=== PATIENT | male | born 1985 | race African-American/Black ===

== ENCOUNTER 2017-03-01 05:01 | Emergency (ER) | payer MEDICAID ==
[~2017-03-01] VITALS: Ht 165.1 cm; Wt 63.5 kg
[2017-03-01] MEDS ORDERED: NKM (05:16)
[2017-03-01] MEDS ORDERED: IBUPROFEN600 MG ORAL (05:34)
--- NOTE | 2017-03-01 05:34 | Emergency Room Report ---
History of Present Illness General Chief Complaint: Toothache Source: Patient Present Illness HPI Is a 31-year-old male with no significant past medical history. Patient presents with multiple complaints. He said he has a broken bone in his face and wanted to see physical therapist head trauma surgeon. He said nose is broken a bone in that area. No fever chills but no nausea vomiting. Also has toothache. Denies any other complaint. Denies any trauma. Also wanted to see a radar technician for his feet. Allergies: Coded Allergies: No Known Allergies (Unverified , 03/01/17) Patient History Past Medical History: see triage record, old chart reviewed Past Surgical History: other Pertinent Family History: none Social History: Denies: smoking Immunizations: other Reviewed Nursing Documentation: PMH: Agreed, PSxH: Agreed Nursing Documentation-PMH Past Medical History: No Stated History Review of Systems Eye: Denies: blurred vision, eye pain ENT: Denies: ear pain, nose congestion, throat swelling Respiratory: Denies: cough, shortness of breath Cardiovascular: Denies: chest pain, palpitations Gastrointestinal: Denies: abdominal pain, diarrhea, nausea, vomiting Musculoskeletal: Denies: back pain, joint pain Skin: Denies: rash Neurological: Denies: headache, numbness Endocrine: Denies: increased thirst, increased urine Hematologic/Lymphatic: Denies: easy bruising All Other Systems: negative except mentioned in HPI Physical Exam Vital Signs Date Time Temp Pulse Resp B/P Pulse Ox O2 Delivery O2 Flow Rate FiO2 03/01/17 05:10 97.5 65 16 118/76 100 Room Air vitals normal Sp02 EP Interpretation: reviewed, normal General Appearance: well appearing, no apparent distress, alert Head: normocephalic, atraumatic Eyes: bilateral eye EOMI, bilateral eye PERRL ENT: hearing grossly normal, normal pharynx Neck: full range of motion, supple, no meningismus Respiratory: chest non-tender, lungs clear, normal breath sounds Cardiovascular #1: regular rate, rhythm, no murmur Gastrointestinal: normal bowel sounds, non tender, no mass, no organomegaly, no bruit, non-distended Musculoskeletal: back normal, gait/station normal, normal range of motion Psychiatric: mood/affect normal Skin: warm/dry Medical Decision Making Diagnostic Impression: Primary Impression: Toothache ER Course She presents with toothache and facial pain. I see no trauma to indicate he has any broken bone. No trismus. No orbital rim deformity. No mal occlusion Last Vital Signs Date Time Temp Pulse Resp B/P Pulse Ox O2 Delivery O2 Flow Rate FiO2 03/01/17 05:10 97.5 65 16 118/76 100 Room Air Status: improved Disposition: HOME, SELF-CARE Condition: Stable Scripts Ibuprofen* (MOTRIN*) 600 Mg Tablet 600 MG ORAL Q8H Y for For Pain, #30 TAB 0 Refills Prov: VIRGINIA GARIBAY M.D. 03/01/17 Patient Instructions: Dental Pain Additional Instructions: Followup your Dr. in 7 days or as needed. Return if symptom worsen. Follow up with dentist OSC[facility]. VIRGINIA GARIBAY M.D. March 01, 2017 05:34
[2017-03-01 05:45] VITALS: BP 118/76
== END 2017-03-01 05:45 | disposition home or self-care (01) ==
LOC: EMR 05:25
DX: K08.89 Other specified disorders of teeth and supporting structures (principal); R51 Headache
CPT/HCPCS: 99283